=== PATIENT | female | born 2000 | race Caucasian/White ===

== ENCOUNTER 2022-06-14 10:01 | Emergency (ER) | payer MEDICAID ==
[~2022-06-14] VITALS: Ht 157.5 cm; Wt 59.0 kg
[2022-06-14 10:06] VITALS: BP 130/199
--- NOTE | 2022-06-14 10:17 | NUR ---
PT TO BED 9 IN W/C
[2022-06-14] MEDS ORDERED: NACL 0.9% 1,000 ML IV ONE (10:30)
--- NOTE | 2022-06-14 10:30 | NUR ---
ASSUMED PATIENT CARE, NURSING ASSESSMENT COMPLETED.
[2022-06-14] MEDS ORDERED: LORazepam 2 MG/ML VIAL IVP ONE (11:05)
[2022-06-14] MEDS ORDERED: ATA25 PO (11:35)
[2022-06-14 11:56] VITALS: BP 123/94
== END 2022-06-14 11:59 | disposition home or self-care (01) ==
LOC: MED 10:01
DX: R07.9 Chest pain, unspecified (principal); F41.9 Anxiety disorder, unspecified; Z79.899 Other long term (current) drug therapy
CPT/HCPCS: 93005; 96361; 96374; 99283; J2060; J7030